=== PATIENT | female | born 1965 | race Caucasian/White ===

== ENCOUNTER → 2017-06-13 | Outpatient (REF) | payer OTHER ==
[~2017-06-13] MED LIST: ASPI325T PO; AZAT50TA2 PO; BUPR150T3 PO; DELZ400C PO; ESCI20TA PO; HUMI40KI2 SC; HYDR25TAB PO; LISI10TA4 PO; OMEP40CA2 PO; TYLE325T5 PO; ZOFR20TA PO; [UNRECOGNIZED DRUG - CODE] PO
[2017-06-13 18:59] LABS: ALBUMIN 4.2 GM/DL (3.2-5.2); ALBUMIN/GLOBULIN RATIO 1.24 (1.00-1.93); ALKALINE PHOSPHATASE 57 U/L (45-117); ALT/SGPT 27 U/L (12-78); ANION GAP 6 MEQ/L (8-16); AST/SGOT 15 U/L (15-37); BILIRUBIN,TOTAL 0.4 MG/DL (0.2-1.0); BLOOD UREA NITROGEN 7 MG/DL (7-18); CALCIUM LEVEL 8.6 MG/DL (8.5-10.1); CARBON DIOXIDE LEVEL 34 MEQ/L (21-32); CHLORIDE LEVEL 96 MEQ/L (98-107); CREATININE FOR GFR 0.55 MG/DL (0.55-1.02); GLOMERULAR FILTRATION RATE > 60.0 (>51); GLUCOSE, FASTING 77 MG/DL (70-105); MAGNESIUM LEVEL 2.3 MG/DL (1.8-2.4); POTASSIUM SERUM 3.8 MEQ/L (3.5-5.1); SODIUM LEVEL 136 MEQ/L (136-145); TOTAL PROTEIN 7.6 GM/DL (6.4-8.2)
[2017-06-13 19:06] LABS: MEAN CORPUSCULAR HEMOGLOBIN 34.6 pg (27.0-33.0); MEAN CORPUSCULAR VOLUME 101.8 fl (80.0-96.0); RED CELL DISTRIBUTION WIDTH 14.4 % (11.5-14.5); WHITE BLOOD COUNT 3.7 K/mm3 (4.0-10.0)
== END ==
LOC: M LABDRAWC 17:29
PROVIDERS: ATTEND Internal Medicine Gastroenterology
DX: K51.90 Ulcerative colitis, unspecified, without complications (principal); K21.9 Gastro-esophageal reflux disease without esophagitis; K44.9 Diaphragmatic hernia without obstruction or gangrene; R19.7 Diarrhea, unspecified

== ENCOUNTER → 2017-06-19 | Outpatient (REF) | payer OTHER | LOC: M LAB REF 18:53 | PROVIDERS: ATTEND Advanced Practice Midwife | DX: Z12.4 Encounter for screening for malignant neoplasm of cervix (principal); R87.622 Low grade squamous intraepithelial lesion on cytologic smear of vagina (LGSIL) ==

== ENCOUNTER → 2018-03-13 | Outpatient (REF) | payer OTHER ==
[2018-03-13 13:41] LABS: BASO % 0.6 % (0.0-1.0); EOS # 0.2 10^3/uL (0.0-0.50); EOS % 4.3 % (0.0-3.0); HEMATOCRIT 38.4 % (36.0-47.0); HEMOGLOBIN 13.1 g/dl (12.0-15.5); LYMPH % 57.4 % (24.0-44.0); MEAN CORPUSCULAR HEMOGLOBIN 31.3 pg (27.0-33.0); MEAN CORPUSCULAR HGB CONC 34.1 g/dl (32.0-36.5); MEAN CORPUSCULAR VOLUME 91.9 fl (80.0-96.0); MONO # 0.5 10^3/uL (0.0-0.8); MONO % 12.9 % (0.0-5.0); NEUTROPHILS % 24.8 % (36.0-66.0); PLATELET COUNT, AUTOMATED 285 10^3/uL (150-450); RED BLOOD COUNT 4.18 10^6/uL (4.00-5.40); RED CELL DISTRIBUTION WIDTH 12.5 % (11.5-14.5); WHITE BLOOD COUNT 3.5 10^3/uL (4.0-10.0)
[2018-03-13 13:44] LABS: NEUTROPHILS # 0.9 10^3/uL (1.8-7.7); POSITIVE DIFF POS FLAG
[2018-03-13 14:21] LABS: CHOLESTEROL LEVEL 247 MG/DL (<200); CHOLESTEROL RISK RATIO 3.983 (<5); FERRITIN 13 NG/ML (8-252); FREE T4 0.87 NG/DL (0.76-1.46); HDL CHOLESTEROL 62 MG/DL (>40); IRON (FE) 124 UG/DL (50-170); LDL CHOLESTEROL 169.8 MG/DL (<100); NON-HDL-C 185 MG/DL; PERCENT SATURATION 34.5 % (13.2-45.0); THYROID STIMULATING HORMONE 0.544 uIU/ML (0.358-3.740); TOTAL IRON BINDING CAPACITY 359 UG/DL (250-450); TRIGLYCERIDES LEVEL 76 MG/DL (<150)
[2018-03-13 14:39] LABS: ESTIMATED AVERAGE GLUCOSE 117 MG/DL (60-110); HEMOGLOBIN A1c 5.7 %
== END ==
LOC: M LAB REF 12:50
DX: E78.4 Other hyperlipidemia (principal); Z79.899 Other long term (current) drug therapy; E55.9 Vitamin D deficiency, unspecified; D64.9 Anemia, unspecified; E03.9 Hypothyroidism, unspecified
CPT/HCPCS: 83550

== ENCOUNTER → 2018-03-13 | Outpatient (REF) | payer OTHER ==
[2018-03-13 14:13] LABS: ALBUMIN 3.8 GM/DL (3.2-5.2); ALKALINE PHOSPHATASE 72 U/L (45-117); ALT/SGPT 29 U/L (12-78); ANION GAP 3 MEQ/L (8-16); AST/SGOT 20 U/L (7-37); BILIRUBIN,TOTAL 0.3 MG/DL (0.2-1.0); BLOOD UREA NITROGEN 7 MG/DL (7-18); C REACTIVE PROTEIN QUANTITATIV < 0.30 MG/DL (0.00-0.30); CALCIUM LEVEL 8.9 MG/DL (8.5-10.1); CARBON DIOXIDE LEVEL 34 MEQ/L (21-32); CHLORIDE LEVEL 97 MEQ/L (98-107); CREATININE FOR GFR 0.61 MG/DL (0.55-1.30); GLOMERULAR FILTRATION RATE > 60.0 (>51); GLUCOSE, FASTING 80 MG/DL (70-100); SODIUM LEVEL 134 MEQ/L (136-145); TOTAL PROTEIN 7.6 GM/DL (6.4-8.2)
[2018-03-13 14:16] LABS: TOTAL 25(OH) VITAMIN D 37.5 NG/ML (30.0-100.0)
== END ==
LOC: M LAB REF 13:24
DX: K52.9 Noninfective gastroenteritis and colitis, unspecified (principal); K44.9 Diaphragmatic hernia without obstruction or gangrene; K21.9 Gastro-esophageal reflux disease without esophagitis
CPT/HCPCS: 80053

== ENCOUNTER → 2018-08-07 | Outpatient (REF) | payer OTHER ==
[2018-08-07 13:50] LABS: BASO % 0.6 % (0.0-1.0); EOS # 0.2 10^3/uL (0.0-0.50); EOS % 4.2 % (0.0-3.0); HEMATOCRIT 39.6 % (36.0-47.0); HEMOGLOBIN 13.5 g/dl (12.0-15.5); LYMPH # 1.9 10^3/uL (1.5-4.5); LYMPH % 51.5 % (24.0-44.0); MEAN CORPUSCULAR HEMOGLOBIN 31.3 pg (27.0-33.0); MEAN CORPUSCULAR HGB CONC 34.1 g/dl (32.0-36.5); MEAN CORPUSCULAR VOLUME 91.7 fl (80.0-96.0); MONO # 0.4 10^3/uL (0.0-0.8); MONO % 11.4 % (0.0-5.0); NEUTROPHILS # 1.2 10^3/uL (1.8-7.7); NEUTROPHILS % 32.3 % (36.0-66.0); PLATELET COUNT, AUTOMATED 310 10^3/uL (150-450); RED BLOOD COUNT 4.32 10^6/uL (4.00-5.40); RED CELL DISTRIBUTION WIDTH 12.2 % (11.5-14.5); WHITE BLOOD COUNT 3.6 10^3/uL (4.0-10.0)
[2018-08-07 14:00] LABS: ESTIMATED AVERAGE GLUCOSE 120 MG/DL (60-110); HEMOGLOBIN A1c 5.8 %
[2018-08-07 14:05] LABS: ALBUMIN 3.8 GM/DL (3.2-5.2); ALBUMIN/GLOBULIN RATIO 1.03 (1.00-1.93); ALKALINE PHOSPHATASE 59 U/L (45-117); ALT/SGPT 29 U/L (12-78); ANION GAP 5 MEQ/L (8-16); AST/SGOT 22 U/L (7-37); BILIRUBIN,TOTAL 0.4 MG/DL (0.2-1.0); BLOOD UREA NITROGEN 7 MG/DL (7-18); CALCIUM LEVEL 8.5 MG/DL (8.5-10.1); CARBON DIOXIDE LEVEL 34 MEQ/L (21-32); CHLORIDE LEVEL 95 MEQ/L (98-107); CHOLESTEROL LEVEL 226 MG/DL (<200); CHOLESTEROL RISK RATIO 4.035 (<5); CREATININE FOR GFR 0.68 MG/DL (0.55-1.30); FERRITIN 18 NG/ML (8-252); GLOMERULAR FILTRATION RATE > 60.0 (>51); GLUCOSE, FASTING 82 MG/DL (70-100); HDL CHOLESTEROL 56 MG/DL (>40); IRON (FE) 117 UG/DL (50-170); LDL CHOLESTEROL 158 MG/DL (<100); NON-HDL-C 170 MG/DL; PERCENT SATURATION 33.5 % (13.2-45.0); POTASSIUM SERUM 4.7 MEQ/L (3.5-5.1); SODIUM LEVEL 134 MEQ/L (136-145); THYROID STIMULATING HORMONE 0.771 uIU/ML (0.358-3.740); TOTAL IRON BINDING CAPACITY 349 UG/DL (250-450); TOTAL PROTEIN 7.5 GM/DL (6.4-8.2); TRIGLYCERIDES LEVEL 62 MG/DL (<150)
== END ==
LOC: M LAB REF 13:10
DX: E04.2 Nontoxic multinodular goiter (principal); Z79.899 Other long term (current) drug therapy; K51.80 Other ulcerative colitis without complications; D64.9 Anemia, unspecified; E78.49 Other hyperlipidemia

== ENCOUNTER → 2019-01-15 | Outpatient (REF) | payer OTHER ==
[~2019-01-15] MED LIST changes: -ZOFR20TA PO; +ZOFR4TAB16 PO
== END ==
LOC: M LAB REF 13:29
PROVIDERS: ATTEND Advanced Practice Midwife
DX: Z12.4 Encounter for screening for malignant neoplasm of cervix (principal); R87.612 Low grade squamous intraepithelial lesion on cytologic smear of cervix (LGSIL)
CPT/HCPCS: 87624; G0123

== ENCOUNTER → 2019-02-17 | Outpatient (REF) | payer OTHER ==
[~2019-02-17] MED LIST changes: +ASPI-1 PO; -ASPI325T PO; +HYDR-2541 PO; -HYDR25TAB PO
== END ==
LOC: M LAB REF 17:31
PROVIDERS: ATTEND Obstetrics & Gynecology
DX: N87.9 Dysplasia of cervix uteri, unspecified (principal)

== ENCOUNTER → 2019-04-08 | Outpatient (CLI) | payer OTHER ==
[2019-04-08 19:17] LABS: HEMATOCRIT 40.8 % (36.0-47.0); HEMOGLOBIN 13.5 g/dl (12.0-15.5); MEAN CORPUSCULAR HGB CONC 33.1 g/dl (32.0-36.5); MEAN CORPUSCULAR VOLUME 93.8 fl (80.0-96.0); PLATELET COUNT, AUTOMATED 319 10^3/uL (150-450); RED BLOOD COUNT 4.35 10^6/uL (4.00-5.40); WHITE BLOOD COUNT 5.5 10^3/uL (4.0-10.0)
[2019-04-08 19:29] LABS: ALT/SGPT 29 U/L (12-78); BILIRUBIN,TOTAL 0.3 MG/DL (0.2-1.0); BLOOD UREA NITROGEN 8 MG/DL (7-18); CALCIUM LEVEL 8.8 MG/DL (8.5-10.1); CARBON DIOXIDE LEVEL 33 MEQ/L (21-32); CHLORIDE LEVEL 96 MEQ/L (98-107); CREATININE FOR GFR 0.65 MG/DL (0.55-1.30); GLOMERULAR FILTRATION RATE > 60.0 (>51); GLUCOSE, FASTING 98 MG/DL (70-100); MAGNESIUM LEVEL 2.2 MG/DL (1.8-2.4); POTASSIUM SERUM 3.8 MEQ/L (3.5-5.1); SODIUM LEVEL 135 MEQ/L (136-145); TOTAL PROTEIN 7.7 GM/DL (6.4-8.2); VITAMIN B12 LEVEL 758 PG/ML (247-911)
== END ==
LOC: M WUC 13:15
PROVIDERS: ATTEND Internal Medicine Gastroenterology
DX: K51.90 Ulcerative colitis, unspecified, without complications (principal)

== ENCOUNTER → 2019-05-29 | Outpatient (CLI) | payer OTHER ==
[2019-05-29 17:57] LABS: HEMATOCRIT 41.4 % (36.0-47.0); HEMOGLOBIN 13.7 g/dl (12.0-15.5); MEAN CORPUSCULAR HEMOGLOBIN 30.8 pg (27.0-33.0); MEAN CORPUSCULAR HGB CONC 33.1 g/dl (32.0-36.5); PLATELET COUNT, AUTOMATED 297 10^3/uL (150-450); RED BLOOD COUNT 4.45 10^6/uL (4.00-5.40); WHITE BLOOD COUNT 4.7 10^3/uL (4.0-10.0)
== END ==
LOC: M WUC 14:59
PROVIDERS: ATTEND Internal Medicine Gastroenterology
DX: R19.7 Diarrhea, unspecified (principal); K52.9 Noninfective gastroenteritis and colitis, unspecified

== ENCOUNTER → 2019-07-07 | Outpatient (REF) ==
[~2019-07-07] MED LIST changes: -OMEP40CA2 PO; +OMEP40CA97 PO
--- NOTE | 2019-07-07 13:57 | REP ---
Click nickel: Pain and disability. Technique: AP, lateral, bilateral oblique and sunrise views of the right knee. Findings: Mild/ early moderate osteoarthritic degenerative changes includes sclerosis along the medial tibial plateau with marginal osteophytosis and cortical irregularity. No acute fracture or dislocation. No effusion. Impression: Mild/early moderate osteoarthritic degenerative changes. Electronically Signed by Vasquez Estrada MD 07/07/2019 01:49 P
--- NOTE | 2019-07-07 14:02 | REP ---
Clinical: Pain and disability. Technique: AP, lateral, coned-down views of the lumbosacral spine. Findings: Alignment and lordosis maintained. No acute fracture / compression injury or subluxation. Moderate multilevel degenerative changes include endplate sclerosis, early marginal spurring, and disc space narrowing and hypertrophic facet changes. Impression: Moderate multilevel degenerative spondylosis. Electronically Signed by Vasquez Estrada MD 07/07/2019 01:53 P
== END ==
LOC: M SMT 13:32
PROVIDERS: ATTEND Internal Medicine
DX: M51.36 Other intervertebral disc degeneration, lumbar region (principal); Z02.71 Encounter for disability determination

== ENCOUNTER → 2019-08-09 | Outpatient (CLI) | payer BC ==
[~2019-08-09] MED LIST changes: +OMEP40CA2 PO; -OMEP40CA97 PO
== END ==
LOC: M WUC 10:31
PROVIDERS: ATTEND Internal Medicine Gastroenterology
DX: Z11.1 Encounter for screening for respiratory tuberculosis (principal)

== ENCOUNTER → 2019-09-02 | Outpatient (CLI) | payer BC ==
[~2019-09-02] MED LIST changes: -OMEP40CA2 PO; +OMEP40CA97 PO
[2019-09-02 11:16] LABS: HEMATOCRIT 41.7 % (36.0-47.0); HEMOGLOBIN 13.2 g/dl (12.0-15.5); MEAN CORPUSCULAR HEMOGLOBIN 30.4 pg (27.0-33.0); MEAN CORPUSCULAR HGB CONC 31.7 g/dl (32.0-36.5); MEAN CORPUSCULAR VOLUME 96.1 fl (80.0-96.0); PLATELET COUNT, AUTOMATED 358 10^3/uL (150-450); RED BLOOD COUNT 4.34 10^6/uL (4.00-5.40); WHITE BLOOD COUNT 5.9 10^3/uL (4.0-10.0)
[2019-09-02 11:51] LABS: ALBUMIN 3.3 GM/DL (3.2-5.2); ALT/SGPT 20 U/L (12-78); BILIRUBIN,TOTAL 0.4 MG/DL (0.2-1.0); BLOOD UREA NITROGEN 8 MG/DL (7-18); C REACTIVE PROTEIN QUANTITATIV < 0.30 MG/DL (0.00-0.30); CALCIUM LEVEL 8.8 MG/DL (8.5-10.1); CARBON DIOXIDE LEVEL 34 MEQ/L (21-32); CHLORIDE LEVEL 97 MEQ/L (98-107); CREATININE FOR GFR 0.72 MG/DL (0.55-1.30); GLOMERULAR FILTRATION RATE > 60.0 (>51); GLUCOSE, FASTING 77 MG/DL (70-100); POTASSIUM SERUM 4.2 MEQ/L (3.5-5.1); SODIUM LEVEL 137 MEQ/L (136-145); TOTAL PROTEIN 6.7 GM/DL (6.4-8.2)
== END ==
LOC: M WUC 08:49
PROVIDERS: ATTEND Internal Medicine Gastroenterology
DX: K51.90 Ulcerative colitis, unspecified, without complications (principal); K52.9 Noninfective gastroenteritis and colitis, unspecified; K62.5 Hemorrhage of anus and rectum

== ENCOUNTER → 2019-09-02 | Outpatient (CLI) | payer BC ==
[2019-09-02 11:45] LABS: HEMOGLOBIN A1c 6.1 %
[2019-09-02 11:48] LABS: CHOLESTEROL RISK RATIO 3.752 (<5); THYROID STIMULATING HORMONE 0.969 uIU/ML (0.358-3.740)
== END ==
LOC: M WUC 08:52
PROVIDERS: ATTEND Nurse Practitioner Adult Health
DX: E78.49 Other hyperlipidemia (principal); F41.9 Anxiety disorder, unspecified; E04.2 Nontoxic multinodular goiter; Z79.899 Other long term (current) drug therapy

== ENCOUNTER → 2019-10-05 | Outpatient (CLI) | payer BC ==
[2019-10-05 17:18] LABS: ALBUMIN 3.5 GM/DL (3.2-5.2); ALT/SGPT 25 U/L (12-78); BILIRUBIN,TOTAL 0.6 MG/DL (0.2-1.0); BLOOD UREA NITROGEN 10 MG/DL (7-18); C REACTIVE PROTEIN QUANTITATIV < 0.30 MG/DL (0.00-0.30); CALCIUM LEVEL 9.2 MG/DL (8.5-10.1); CARBON DIOXIDE LEVEL 31 MEQ/L (21-32); CHLORIDE LEVEL 96 MEQ/L (98-107); CREATININE FOR GFR 0.77 MG/DL (0.55-1.30); GLOMERULAR FILTRATION RATE > 60.0 (>51); GLUCOSE, FASTING 89 MG/DL (70-100); HEMATOCRIT 38.4 % (36.0-47.0); HEMOGLOBIN 12.5 g/dl (12.0-15.5); MEAN CORPUSCULAR HEMOGLOBIN 30.6 pg (27.0-33.0); MEAN CORPUSCULAR HGB CONC 32.6 g/dl (32.0-36.5); MEAN CORPUSCULAR VOLUME 93.9 fl (80.0-96.0); PLATELET COUNT, AUTOMATED 339 10^3/uL (150-450); POTASSIUM SERUM 3.7 MEQ/L (3.5-5.1); RED BLOOD COUNT 4.09 10^6/uL (4.00-5.40); SODIUM LEVEL 136 MEQ/L (136-145); TOTAL PROTEIN 6.8 GM/DL (6.4-8.2); WHITE BLOOD COUNT 5.6 10^3/uL (4.0-10.0)
== END ==
LOC: M WUC 10:54
PROVIDERS: ATTEND Internal Medicine Gastroenterology
DX: K52.9 Noninfective gastroenteritis and colitis, unspecified (principal); K51.90 Ulcerative colitis, unspecified, without complications; D61.818 Other pancytopenia

== ENCOUNTER → 2019-12-13 | Outpatient (CLI) | payer BC ==
[2019-12-13 14:51] LABS: HEMATOCRIT 38.5 % (36.0-47.0); HEMOGLOBIN 12.7 g/dl (12.0-15.5); MEAN CORPUSCULAR HEMOGLOBIN 31.5 pg (27.0-33.0); MEAN CORPUSCULAR VOLUME 95.5 fl (80.0-96.0); PLATELET COUNT, AUTOMATED 364 10^3/uL (150-450); RED BLOOD COUNT 4.03 10^6/uL (4.00-5.40); WHITE BLOOD COUNT 6.9 10^3/uL (4.0-10.0)
[2019-12-13 15:03] LABS: ALBUMIN 3.8 GM/DL (3.2-5.2); ALT/SGPT 36 U/L (12-78); BILIRUBIN,TOTAL 0.2 MG/DL (0.2-1.0); BLOOD UREA NITROGEN 8 MG/DL (7-18); C REACTIVE PROTEIN QUANTITATIV < 0.30 MG/DL (0.00-0.30); CALCIUM LEVEL 9.3 MG/DL (8.5-10.1); CARBON DIOXIDE LEVEL 33 MEQ/L (21-32); CHLORIDE LEVEL 97 MEQ/L (98-107); CREATININE FOR GFR 0.73 MG/DL (0.55-1.30); GLOMERULAR FILTRATION RATE > 60.0 (>51); GLUCOSE, FASTING 95 MG/DL (70-100); SODIUM LEVEL 136 MEQ/L (136-145); TOTAL PROTEIN 7.3 GM/DL (6.4-8.2)
[2019-12-13 15:08] LABS: TOTAL 25(OH) VITAMIN D 35.7 NG/ML (30.0-100.0)
== END ==
LOC: M WUC 11:58
PROVIDERS: ATTEND Internal Medicine Gastroenterology
DX: K51.90 Ulcerative colitis, unspecified, without complications (principal); K52.9 Noninfective gastroenteritis and colitis, unspecified; D50.0 Iron deficiency anemia secondary to blood loss (chronic); E55.9 Vitamin D deficiency, unspecified

== ENCOUNTER → 2020-02-16 | Outpatient (CLI) | payer BC ==
--- NOTE | 2020-02-17 04:57 | REP ---
Clinical: Pelvic pain/mass. Technique: Transabdominal pelvic ultrasound followed by transvaginal examination for better evaluation of the endometrium and adnexa. Findings: Bladder is incompletely distended but grossly normal in appearance. Anteverted heterogeneous uterus measures 6.7 x 1.8 x 3.4 cm. Endometrial complex measures 2 mm thickness. There is suggestion for poorly defined anterior intramural fibroid measuring 8 mm diameter. Left ovary is not visualized. The right ovary measures 4.3 x 3.2 x 3.8 cm (RI 0.62) without torsion and includes a 3.9 x 3.0 x 3.2 cm complex cystic lesion with debris. No pelvic fluid or adnexal mass lesion. Impression: 1. Heterogeneous uterus with possible 8 mm anterior intramural fibroid. 2. A 3.9 cm Complex cyst in the right ovary is identified. Likely physiologic although reevaluation and 4-6 weeks may be warranted to evaluate for resolution. 3. Left ovary not visualized. No pelvic fluid.
== END ==
LOC: M WHC 09:30
PROVIDERS: ATTEND Advanced Practice Midwife
DX: N83.201 Unspecified ovarian cyst, right side (principal)

== ENCOUNTER → 2020-03-28 | Outpatient (CLI) | payer BC ==
[~2020-03-28] MED LIST changes: -DELZ400C PO; +DELZ400C5 PO
--- NOTE | 2020-03-29 02:58 | REP ---
Clinical: Follow up right ovarian cyst. Comparison: 02/16/2020. Technique: Transabdominal pelvic ultrasound followed by transvaginal examination for better evaluation of the endometrium and adnexa with color Doppler evaluation of the ovaries. Findings: Bladder is under distended and limits transabdominal imaging. Heterogeneous anteverted uterus measures 5.8 x 2.6 x 3.8 cm. Endometrial complex measures 2.0 mm thickness. Anterior fibroid again noted measuring approximately 9 mm maximal diameter. Bilateral ovaries are normal in vascularity without torsion. Right ovary measures 2.9 x 3.4 x 3.6 cm (RI 0.65) and includes 3.6 x 3.6 x 3.2 cm simple cyst similar to prior examination. Left ovary measures 2.1 x 1.5 x 1.2 cm (RI 0.50). No pelvic fluid or adnexal mass lesion. Impression: 1. Heterogeneous anteverted uterus with 9 mm anterior fibroid again noted. 2. Right ovarian cyst again identified and appears relatively simple on current examination.
== END ==
LOC: M WHC 10:55
PROVIDERS: ATTEND Advanced Practice Midwife
DX: N83.201 Unspecified ovarian cyst, right side (principal)

== ENCOUNTER → 2020-05-01 | Outpatient (CLI) | payer BC ==
[2020-05-01 12:55] LABS: HEMATOCRIT 33.9 % (36.0-47.0); HEMOGLOBIN 11.4 g/dl (12.0-15.5); MEAN CORPUSCULAR HEMOGLOBIN 32.4 pg (27.0-33.0); MEAN CORPUSCULAR HGB CONC 33.6 g/dl (32.0-36.5); MEAN CORPUSCULAR VOLUME 96.3 fl (80.0-96.0); PLATELET COUNT, AUTOMATED 323 10^3/uL (150-450); RED BLOOD COUNT 3.52 10^6/uL (4.00-5.40); WHITE BLOOD COUNT 3.2 10^3/uL (4.0-10.0)
[2020-05-01 13:02] LABS: ALBUMIN 3.4 GM/DL (3.2-5.2); ALT/SGPT 68 U/L (12-78); BILIRUBIN,TOTAL 0.3 MG/DL (0.2-1.0); BLOOD UREA NITROGEN 9 MG/DL (7-18); CALCIUM LEVEL 8.8 MG/DL (8.5-10.1); CARBON DIOXIDE LEVEL 32 MEQ/L (21-32); CHLORIDE LEVEL 102 MEQ/L (98-107); CHOLESTEROL LEVEL 202 MG/DL (<200); CHOLESTEROL RISK RATIO 3.672 (<5); CREATININE FOR GFR 0.69 MG/DL (0.55-1.30); GLOMERULAR FILTRATION RATE > 60.0 (>51); GLUCOSE, FASTING 92 MG/DL (70-100); HDL CHOLESTEROL 55 MG/DL (>40); LDL CHOLESTEROL 134 MG/DL (<100); MAGNESIUM LEVEL 2.2 MG/DL (1.8-2.4); NON-HDL-C 147 MG/DL; POTASSIUM SERUM 4.4 MEQ/L (3.5-5.1); SODIUM LEVEL 139 MEQ/L (136-145); THYROID STIMULATING HORMONE 0.472 uIU/ML (0.358-3.740); TOTAL PROTEIN 6.6 GM/DL (6.4-8.2); TRIGLYCERIDES LEVEL 65 MG/DL (<150)
[2020-05-01 13:28] LABS: EOSINOPHILS 4 % (0-3); LYMPHOCYTES 55 % (16-44); MONOCYTES 2 % (0-5); NEUTROPHILS 37 % (28-66)
[2020-05-01 13:29] LABS: BASOPHILS 2 % (0-1)
[2020-05-01 13:30] LABS: PLATELET ESTIMATE NORMAL (NORMAL)
[2020-05-01 13:47] LABS: HEMOGLOBIN A1c 6.6 %
== END ==
LOC: M WUC 09:26
PROVIDERS: ATTEND Nurse Practitioner Adult Health
DX: E78.00 Pure hypercholesterolemia, unspecified (principal); F33.1 Major depressive disorder, recurrent, moderate; Z79.899 Other long term (current) drug therapy; K51.911 Ulcerative colitis, unspecified with rectal bleeding; D64.9 Anemia, unspecified; K21.9 Gastro-esophageal reflux disease without esophagitis

== ENCOUNTER → 2020-05-01 | Outpatient (CLI) | payer BC ==
[2020-05-01 12:51] LABS: MAGNESIUM LEVEL 2.4 MG/DL (1.8-2.4)
[2020-05-01 13:07] LABS: TOTAL 25(OH) VITAMIN D 58.4 NG/ML (30.0-100.0)
== END ==
LOC: M WUC 09:31
PROVIDERS: ATTEND Internal Medicine Gastroenterology
DX: E55.9 Vitamin D deficiency, unspecified (principal); D50.0 Iron deficiency anemia secondary to blood loss (chronic); K21.9 Gastro-esophageal reflux disease without esophagitis; K51.90 Ulcerative colitis, unspecified, without complications; E56.9 Vitamin deficiency, unspecified

== ENCOUNTER → 2020-06-14 | Outpatient (REF) | payer OTHER ==
[2020-07-15 11:55] LABS: HEMATOCRIT 35.5 % (36.0-47.0); HEMOGLOBIN 11.8 g/dl (12.0-15.5); MEAN CORPUSCULAR HEMOGLOBIN 32.4 pg (27.0-33.0); MEAN CORPUSCULAR HGB CONC 33.2 g/dl (32.0-36.5); MEAN CORPUSCULAR VOLUME 97.5 fl (80.0-96.0); PLATELET COUNT, AUTOMATED 421 10^3/uL (150-450); RED BLOOD COUNT 3.64 10^6/uL (4.00-5.40); WHITE BLOOD COUNT 3.2 10^3/uL (4.0-10.0)
[2020-07-29 11:18] LABS: ALBUMIN 3.7 GM/DL (3.2-5.2); ALT/SGPT 199 U/L (12-78); BILIRUBIN,TOTAL 0.7 MG/DL (0.2-1.0); BLOOD UREA NITROGEN 14 MG/DL (7-18); CALCIUM LEVEL 8.9 MG/DL (8.5-10.1); CARBON DIOXIDE LEVEL 31 MEQ/L (21-32); CHLORIDE LEVEL 100 MEQ/L (98-107); CREATININE FOR GFR 0.82 MG/DL (0.55-1.30); GLOMERULAR FILTRATION RATE > 60.0 (>51); GLUCOSE, FASTING 99 MG/DL (70-100); IRON (FE) 148 UG/DL (50-170); POTASSIUM SERUM 4.1 MEQ/L (3.5-5.1); SODIUM LEVEL 136 MEQ/L (136-145); TOTAL IRON BINDING CAPACITY 302 UG/DL (250-450); TOTAL PROTEIN 7.2 GM/DL (6.4-8.2)
[2020-08-28 15:36] LABS: 6-TGN SEE SEPARATE REPORT (230-400); 6MMPN SEE SEPARATE REPORT (<5700)
== END ==
LOC: M LABWUC 09:06
PROVIDERS: ATTEND Internal Medicine Gastroenterology
DX: K44.9 Diaphragmatic hernia without obstruction or gangrene (principal); R53.82 Chronic fatigue, unspecified; K21.9 Gastro-esophageal reflux disease without esophagitis; D50.0 Iron deficiency anemia secondary to blood loss (chronic); K51.90 Ulcerative colitis, unspecified, without complications

== ENCOUNTER → 2020-07-17 | Outpatient (CLI) | payer OTHER ==
[2020-07-17 16:38] LABS: MAGNESIUM LEVEL 2.1 MG/DL (1.8-2.4)
== END ==
LOC: M WUC 12:32
PROVIDERS: ATTEND Internal Medicine Gastroenterology
DX: D50.0 Iron deficiency anemia secondary to blood loss (chronic) (principal); K52.9 Noninfective gastroenteritis and colitis, unspecified; K51.90 Ulcerative colitis, unspecified, without complications; E56.9 Vitamin deficiency, unspecified

== ENCOUNTER → 2020-07-17 | Outpatient (CLI) | payer OTHER ==
[2020-07-17 16:26] LABS: BASO % 0.6 % (0.0-1.0); EOS # 0.1 10^3/uL (0.0-0.5); EOS % 2.5 % (0.0-3.0); LYMPH # 1.6 10^3/uL (1.5-5.0); LYMPH % 50.2 % (24.0-44.0); MEAN CORPUSCULAR HEMOGLOBIN 32.6 pg (27.0-33.0); MEAN CORPUSCULAR HGB CONC 34.3 g/dl (32.0-36.5); MEAN CORPUSCULAR VOLUME 95.1 fl (80.0-96.0); MONO # 0.3 10^3/uL (0.0-0.8); MONO % 10.8 % (0.0-5.0); NEUTROPHILS # 1.1 10^3/uL (1.5-8.5); NEUTROPHILS % 35.9 % (36.0-66.0); PLATELET COUNT, AUTOMATED 327 10^3/uL (150-450); RED BLOOD COUNT 3.68 10^6/uL (4.00-5.40); WHITE BLOOD COUNT 3.2 10^3/uL (4.0-10.0)
[2020-07-17 17:12] LABS: ALBUMIN 3.6 GM/DL (3.2-5.2); ALT/SGPT 41 U/L (12-78); BILIRUBIN,DIRECT 0.1 MG/DL (0.0-0.2); BILIRUBIN,TOTAL 0.4 MG/DL (0.2-1.0); BLOOD UREA NITROGEN 8 MG/DL (7-18); CALCIUM LEVEL 8.8 MG/DL (8.5-10.1); CARBON DIOXIDE LEVEL 31 MEQ/L (21-32); CHLORIDE LEVEL 98 MEQ/L (98-107); CREATININE FOR GFR 0.73 MG/DL (0.55-1.30); FREE T3 3.1 PG/ML (2.2-4.0); FREE T4 0.99 NG/DL (0.76-1.46); GLOMERULAR FILTRATION RATE > 60.0 (>51); GLUCOSE, FASTING 87 MG/DL (70-100); POTASSIUM SERUM 3.9 MEQ/L (3.5-5.1); SODIUM LEVEL 135 MEQ/L (136-145); THYROID PEROXIDASE ANTIBODY 36.6 U/ML (<60.0); THYROID STIMULATING HORMONE 0.333 uIU/ML (0.358-3.740); THYROXINE (T4) 7.3 UG/DL (4.5-12.0); TOTAL PROTEIN 7.3 GM/DL (6.4-8.2)
[2020-07-20 19:11] LABS: D001-IgE D pteronyssinus 4.05 kU/L (Class IV); E005-IgE Dog Dander 0.23 kU/L (Class 0/I); F002-IgE Milk < 0.10 kU/L (Class 0); F004-IgE Wheat < 0.10 kU/L (Class 0); F026-IgE Pork < 0.10 kU/L (Class 0); F027-IgE Beef < 0.10 kU/L (Class 0); F245-IgE Egg, Whole < 0.10 kU/L (Class 0); FX02-IgE Food Mix (Sea Foods) Negative (.); G002-IgE Bermuda Grass < 0.10 kU/L (Class 0); G008-IgE Kentucky Bluegrass < 0.10 kU/L (Class 0); M001-IgE Penicillium chrysogen < 0.10 kU/L (Class 0); M002 IgE Cladosporium herbaru < 0.10 kU/L (Class 0); M003 IgE Aspergillus fumigatu < 0.10 kU/L (Class 0); M006-IgE Alternaria alternata < 0.10 kU/L (Class 0); T001-IgE Maple/Box Elder < 0.10 kU/L (Class 0); T003-IgE Common Silver Birch < 0.10 kU/L (Class 0); T006-IgE Cedar, Mountain < 0.10 kU/L (Class 0); T007-IgE Oak, White < 0.10 kU/L (Class 0); T008-IgE Elm, American < 0.10 kU/L (Class 0); T015-IgE Ash, White < 0.10 kU/L (Class 0); T041-IgE Hickory, White < 0.10 kU/L (Class 0); T070-IgE White Mulberry < 0.10 kU/L (Class 0); W001-IgE Ragweed, Short 2.32 kU/L (Class III); W009-IgE Plantain, English < 0.10 kU/L (Class 0); W014-IgE Pigweed, Rough < 0.10 kU/L (Class 0); W018-IgE Sheep Sorrel < 0.10 kU/L (Class 0)
== END ==
LOC: M WUC 12:35
PROVIDERS: ATTEND Nurse Practitioner Adult Health
DX: E04.2 Nontoxic multinodular goiter (principal); D64.9 Anemia, unspecified; K51.911 Ulcerative colitis, unspecified with rectal bleeding; T78.40XD Allergy, unspecified, subsequent encounter; Z79.899 Other long term (current) drug therapy

== ENCOUNTER → 2020-07-18 | Outpatient (CLI) | payer OTHER ==
--- NOTE | 2020-07-31 11:32 | REP ---
THYROID ULTRASOUND CLINICAL: Multinodular goiter. TECHNIQUE: Real-time gabriel scale and color evaluation using linear high frequency transducer. FINDINGS: Right thyroid lobe measures 6.1 x 2.8 x 2.5 cm and appears diffusely heterogeneous along with a 2.1 x 1.4 x 1.4 cm solid mid-pole nodule, 1.9 x 1.2 x 2.0 cm solid mid-lower pole nodule, and 1.7 x 1.0 x 2.2 cm complex cyst with 9 mm mural nodule. The left thyroid lobe measures approximately 6.3 x 2.1 x 2.2 cm and includes 1.5 x 0.6 x 1.2 cm upper pole solid nodule, 1.4 x 0.7 x 1.0 cm solid mid-pole blanco, and 1.0 x 0.5 x 0.8 cm complex lower pole cystic nodule. The isthmus measures 3.6 mm in width. IMPRESSION: Heterogeneous multinodular goiter. No prior examinations available for comparison. MTDD
--- NOTE | 2020-07-31 11:35 | REP ---
LIVER ULTRASOUND: CLINICAL: Elevated liver function tests. FINDINGS: The liver and pancreas are normal in contour, size and echogenicity without focal hepatic or pancreatic lesion identified. The gallbladder is normal and without gallstones, wall thickening or pericholecystic fluid. No biliary ductal dilatation is appreciated and the common bile duct measures 1.3 mm diameter. The right kidney is normal reniform shape without hydronephrosis and measures 9.4 x 4.3 x 4.2 cm. No ascites in the visualized right upper quadrant. IMPRESSION: Normal liver and right upper quadrant ultrasound. MTDD
== END ==
LOC: M RAD 09:15
PROVIDERS: ATTEND Nurse Practitioner Adult Health
DX: R94.5 Abnormal results of liver function studies (principal); D64.9 Anemia, unspecified; K51.911 Ulcerative colitis, unspecified with rectal bleeding; E04.2 Nontoxic multinodular goiter; Z79.899 Other long term (current) drug therapy

== ENCOUNTER → 2021-01-29 | Outpatient (CLI) | payer OTHER ==
[~2021-01-29] MED LIST changes: +BUPR150T12 PO; -BUPR150T3 PO; -ESCI20TA PO; +ESCI20TA16 PO; +LISI10TA22 PO; -LISI10TA4 PO
[2021-01-29 13:04] LABS: HEMATOCRIT 34.2 % (36.0-47.0); MEAN CORPUSCULAR HGB CONC 32.2 g/dl (32.0-36.5); MEAN CORPUSCULAR VOLUME 93.2 fl (80.0-96.0); PLATELET COUNT, AUTOMATED 328 10^3/uL (150-450); RED BLOOD COUNT 3.67 10^6/uL (4.00-5.40); WHITE BLOOD COUNT 6.4 10^3/uL (4.0-10.0)
[2021-01-29 13:36] LABS: ALBUMIN 3.3 GM/DL (3.2-5.2); ALT/SGPT 18 U/L (12-78); BILIRUBIN,TOTAL 0.2 MG/DL (0.2-1.0); BLOOD UREA NITROGEN 10 MG/DL (7-18); CALCIUM LEVEL 8.5 MG/DL (8.5-10.1); CARBON DIOXIDE LEVEL 35 MEQ/L (21-32); CHLORIDE LEVEL 100 MEQ/L (98-107); GLOMERULAR FILTRATION RATE > 60.0 (>51); GLUCOSE, FASTING 136 MG/DL (70-100); MAGNESIUM LEVEL 2.3 MG/DL (1.8-2.4); POTASSIUM SERUM 3.5 MEQ/L (3.5-5.1); SODIUM LEVEL 138 MEQ/L (136-145); TOTAL PROTEIN 6.5 GM/DL (6.4-8.2)
== END ==
LOC: M WUC 11:25
PROVIDERS: ATTEND Internal Medicine Gastroenterology
DX: K51.90 Ulcerative colitis, unspecified, without complications (principal); K62.5 Hemorrhage of anus and rectum; K44.9 Diaphragmatic hernia without obstruction or gangrene; R11.2 Nausea with vomiting, unspecified; D50.0 Iron deficiency anemia secondary to blood loss (chronic); R63.4 Abnormal weight loss

== ENCOUNTER → 2021-05-15 | Outpatient (REF) | payer MEDICARE ==
[~2021-05-15] MED LIST changes: +OMEP40CA4 PO; -OMEP40CA97 PO
== END ==
LOC: M SFHCWAGY 19:31
PROVIDERS: ATTEND Advanced Practice Midwife
DX: Z12.4 Encounter for screening for malignant neoplasm of cervix (principal); R87.610 Atypical squamous cells of undetermined significance on cytologic smear of cervix (ASC-US); R87.618 Other abnormal cytological findings on specimens from cervix uteri
CPT/HCPCS: 87624; G0123

== ENCOUNTER → 2021-05-15 | Outpatient (CLI) | payer MEDICARE | LOC: M WHC 14:21 | PROVIDERS: ATTEND Advanced Practice Midwife | DX: Z12.31 Encounter for screening mammogram for malignant neoplasm of breast (principal); Z78.0 Asymptomatic menopausal state; Z80.3 Family history of malignant neoplasm of breast; R92.1 Mammographic calcification found on diagnostic imaging of breast ==

== ENCOUNTER → 2021-08-24 | Outpatient (CLI) | payer MEDICARE | LOC: M WUC 08:49 | PROVIDERS: ATTEND Internal Medicine Gastroenterology | DX: K51.90 Ulcerative colitis, unspecified, without complications (principal) ==

== ENCOUNTER → 2021-08-24 | Outpatient (CLI) | payer MEDICARE ==
[2021-08-24 12:26] LABS: BASO % 0.4 % (0.0-1.0); EOS # 0.1 10^3/uL (0.0-0.5); EOS % 2.4 % (0.0-3.0); HEMATOCRIT 37.9 % (36.0-47.0); HEMOGLOBIN 12.4 g/dl (12.0-15.5); LYMPH # 2.2 10^3/uL (1.5-5.0); LYMPH % 47.9 % (24.0-44.0); MEAN CORPUSCULAR HEMOGLOBIN 31.6 pg (27.0-33.0); MEAN CORPUSCULAR HGB CONC 32.7 g/dl (32.0-36.5); MEAN CORPUSCULAR VOLUME 96.4 fl (80.0-96.0); MONO # 0.6 10^3/uL (0.0-0.8); MONO % 12.6 % (2.0-8.0); NEUTROPHILS # 1.6 10^3/uL (1.5-8.5); NEUTROPHILS % 36.5 % (36.0-66.0); PLATELET COUNT, AUTOMATED 356 10^3/uL (150-450); RED BLOOD COUNT 3.93 10^6/uL (4.00-5.40); WHITE BLOOD COUNT 4.5 10^3/uL (4.0-10.0)
[2021-08-24 12:51] LABS: HEMOGLOBIN A1c 5.8 %
[2021-08-24 13:04] LABS: ALBUMIN 3.4 GM/DL (3.2-5.2); ALT/SGPT 34 U/L (12-78); BILIRUBIN,TOTAL 0.3 MG/DL (0.2-1.0); BLOOD UREA NITROGEN 10 MG/DL (7-18); CALCIUM LEVEL 9.1 MG/DL (8.5-10.1); CARBON DIOXIDE LEVEL 35 MEQ/L (21-32); CHLORIDE LEVEL 99 MEQ/L (98-107); CHOLESTEROL LEVEL 270 MG/DL (<200); CREATININE FOR GFR 0.69 MG/DL (0.55-1.30); GLOMERULAR FILTRATION RATE > 60.0 (>51); GLUCOSE, FASTING 89 MG/DL (70-100); HDL CHOLESTEROL 72 MG/DL (>40); LDL CHOLESTEROL 178 MG/DL (<100); MAGNESIUM LEVEL 2.1 MG/DL (1.8-2.4); NON-HDL-C 198 MG/DL; POTASSIUM SERUM 3.9 MEQ/L (3.5-5.1); SODIUM LEVEL 137 MEQ/L (136-145); TOTAL PROTEIN 7.3 GM/DL (6.4-8.2); TRIGLYCERIDES LEVEL 102 MG/DL (<150)
== END ==
LOC: M WUC 08:46
PROVIDERS: ATTEND Nurse Practitioner Family
DX: Z13.220 Encounter for screening for lipoid disorders (principal); E83.42 Hypomagnesemia; I10 Essential (primary) hypertension; E11.29 Type 2 diabetes mellitus with other diabetic kidney complication

== ENCOUNTER → 2021-10-02 | Outpatient (REF) | payer MEDICARE | LOC: M SFHCWAGY 10:07 | PROVIDERS: ATTEND Obstetrics & Gynecology | DX: R87.612 Low grade squamous intraepithelial lesion on cytologic smear of cervix (LGSIL) (principal) ==

== ENCOUNTER → 2022-01-31 | Outpatient (CLI) | payer MEDICARE ==
[2022-01-31 12:48] LABS: HEMATOCRIT 35.7 % (36.0-47.0); HEMOGLOBIN 11.7 g/dl (12.0-15.5); MEAN CORPUSCULAR HEMOGLOBIN 31.1 pg (27.0-33.0); MEAN CORPUSCULAR HGB CONC 32.8 g/dl (32.0-36.5); MEAN CORPUSCULAR VOLUME 94.9 fl (80.0-96.0); PLATELET COUNT, AUTOMATED 340 10^3/uL (150-450); RED BLOOD COUNT 3.76 10^6/uL (4.00-5.40); WHITE BLOOD COUNT 3.2 10^3/uL (4.0-10.0)
[2022-01-31 13:20] LABS: EOSINOPHILS 2 % (0-3); LYMPHOCYTES 44 % (16-44); MONOCYTES 10 % (0-5); NEUTROPHILS 44 % (28-66); PLATELET ESTIMATE NORMAL (NORMAL)
[2022-01-31 14:04] LABS: ALBUMIN 3.7 GM/DL (3.2-5.2); ALT/SGPT 35 U/L (12-78); BILIRUBIN,TOTAL 0.6 MG/DL (0.2-1.0); BLOOD UREA NITROGEN 8 MG/DL (7-18); CALCIUM LEVEL 8.9 MG/DL (8.5-10.1); CARBON DIOXIDE LEVEL 32 MEQ/L (21-32); CHLORIDE LEVEL 100 MEQ/L (98-107); CHOLESTEROL LEVEL 279 MG/DL (<200); CREATININE FOR GFR 0.68 MG/DL (0.55-1.30); FOLATE 17.1 NG/ML; GLOMERULAR FILTRATION RATE > 60.0 (>51); GLUCOSE, FASTING 90 MG/DL (70-100); HDL CHOLESTEROL 58 MG/DL (>40); LDL CHOLESTEROL 203 MG/DL (<100); MAGNESIUM LEVEL 2.3 MG/DL (1.8-2.4); NON-HDL-C 221 MG/DL; POTASSIUM SERUM 4.3 MEQ/L (3.5-5.1); SODIUM LEVEL 137 MEQ/L (136-145); THYROID STIMULATING HORMONE 0.612 uIU/ML (0.358-3.740); TOTAL PROTEIN 7.1 GM/DL (6.4-8.2); TRIGLYCERIDES LEVEL 90 MG/DL (<150); VITAMIN B12 LEVEL 306 PG/ML
[2022-01-31 17:22] LABS: HEMOGLOBIN A1c 6.1 %
== END ==
LOC: M WUC 08:40
PROVIDERS: ATTEND Nurse Practitioner Family
DX: Z00.01 Encounter for general adult medical examination with abnormal findings (principal); E11.9 Type 2 diabetes mellitus without complications; Z79.899 Other long term (current) drug therapy; E78.00 Pure hypercholesterolemia, unspecified; E83.42 Hypomagnesemia; Z13.29 Encounter for screening for other suspected endocrine disorder; D64.9 Anemia, unspecified

== ENCOUNTER → 2022-04-16 | Outpatient (CLI) | payer MEDICARE ==
[~2022-04-16] MED LIST changes: -AZAT50TA2 PO; +AZAT50TA37 PO
== END ==
LOC: M WUC 11:46
PROVIDERS: ATTEND Nurse Practitioner Family
DX: M25.59 Pain in other specified joint (principal)

== ENCOUNTER → 2022-05-13 | Outpatient (CLI) | payer MEDICARE ==
[~2022-05-13] MED LIST changes: +ISOVUE-370 76% 100ML VIAL As Ordered ONE
== END ==
LOC: M RAD 13:40
PROVIDERS: ATTEND Surgery Vascular Surgery
DX: I65.23 Occlusion and stenosis of bilateral carotid arteries (principal)
CPT/HCPCS: 70496; 70498; Q9967

== ENCOUNTER → 2022-06-06 | Outpatient (REF) | payer MEDICARE ==
[~2022-06-06] MED LIST changes: -ISOVUE-370 76% 100ML VIAL As Ordered ONE
== END ==
LOC: M LAB REF 11:52
PROVIDERS: ATTEND Nurse Practitioner Family
DX: K51.90 Ulcerative colitis, unspecified, without complications (principal); R11.2 Nausea with vomiting, unspecified

== ENCOUNTER → 2022-07-22 | Outpatient (CLI) | payer MEDICARE ==
[2022-07-22 10:23] LABS: BASO % 0.6 % (0.0-1.0); EOS # 0.1 10^3/uL (0.0-0.5); EOS % 4.2 % (0.0-3.0); HEMATOCRIT 39.3 % (36.0-47.0); HEMOGLOBIN 12.4 g/dl (12.0-15.5); LYMPH # 1.5 10^3/uL (1.5-5.0); LYMPH % 46.4 % (24.0-44.0); MEAN CORPUSCULAR HEMOGLOBIN 30.2 pg (27.0-33.0); MEAN CORPUSCULAR HGB CONC 31.6 g/dl (32.0-36.5); MEAN CORPUSCULAR VOLUME 95.9 fl (80.0-96.0); MONO # 0.7 10^3/uL (0.0-0.8); MONO % 21.4 % (2.0-8.0); NEUTROPHILS % 27.4 % (36.0-66.0); PLATELET COUNT, AUTOMATED 343 10^3/uL (150-450); WHITE BLOOD COUNT 3.3 10^3/uL (4.0-10.0)
[2022-07-22 10:42] LABS: HEMOGLOBIN A1c 6.2 %
[2022-07-22 10:51] LABS: NEUTROPHILS # 0.9 10^3/uL (1.5-8.5)
[2022-07-22 11:08] LABS: ALBUMIN 3.8 GM/DL (3.2-5.2); ALT/SGPT 26 U/L (12-78); BILIRUBIN,TOTAL 0.4 MG/DL (0.2-1.0); BLOOD UREA NITROGEN 8 MG/DL (7-18); CALCIUM LEVEL 9.2 MG/DL (8.5-10.1); CARBON DIOXIDE LEVEL 32 MEQ/L (21-32); CHLORIDE LEVEL 98 MEQ/L (98-107); CHOLESTEROL LEVEL 320 MG/DL (<200); CHOLESTEROL RISK RATIO 5.079 (<5); CREATININE FOR GFR 0.68 MG/DL (0.55-1.30); GLOMERULAR FILTRATION RATE > 60.0 (>51); GLUCOSE, FASTING 109 MG/DL (70-100); HDL CHOLESTEROL 63 MG/DL (>40); LDL CHOLESTEROL 232 MG/DL (<100); MAGNESIUM LEVEL 2.3 MG/DL (1.8-2.4); NON-HDL-C 257 MG/DL; POTASSIUM SERUM 4.2 MEQ/L (3.5-5.1); SODIUM LEVEL 134 MEQ/L (136-145); THYROID STIMULATING HORMONE 0.522 uIU/ML (0.358-3.740); TOTAL PROTEIN 7.2 GM/DL (6.4-8.2); TRIGLYCERIDES LEVEL 123 MG/DL (<150)
[2022-07-22 11:30] LABS: VITAMIN B12 LEVEL 430 PG/ML (247-911)
[2022-07-23 08:09] LABS: FOLATE 17.8 ng/mL (>3.0)
== END ==
LOC: M WUC 08:55
PROVIDERS: ATTEND Nurse Practitioner Family
DX: Z00.01 Encounter for general adult medical examination with abnormal findings (principal); Z79.899 Other long term (current) drug therapy; E78.00 Pure hypercholesterolemia, unspecified; E83.42 Hypomagnesemia; Z13.29 Encounter for screening for other suspected endocrine disorder; D51.9 Vitamin B12 deficiency anemia, unspecified; E11.9 Type 2 diabetes mellitus without complications

== ENCOUNTER → 2022-08-20 | Outpatient (CLI) | payer MEDICARE | LOC: M RAD 10:34 | PROVIDERS: ATTEND Nurse Practitioner Family | DX: Z12.2 Encounter for screening for malignant neoplasm of respiratory organs (principal); Z87.891 Personal history of nicotine dependence ==

== ENCOUNTER → 2022-11-20 | Outpatient (CLI) | payer MEDICARE | LOC: M WUC 08:35 | PROVIDERS: ATTEND Internal Medicine Gastroenterology | DX: K51.90 Ulcerative colitis, unspecified, without complications (principal); K21.9 Gastro-esophageal reflux disease without esophagitis; K44.9 Diaphragmatic hernia without obstruction or gangrene ==

== ENCOUNTER → 2022-11-20 | Outpatient (CLI) | payer MEDICARE ==
[2022-11-20 10:57] LABS: BASO % 0.6 % (0.0-1.0); EOS # 0.1 10^3/uL (0.0-0.5); EOS % 3.1 % (0.0-3.0); HEMATOCRIT 36.6 % (36.0-47.0); HEMOGLOBIN 11.8 g/dl (12.0-15.5); LYMPH # 1.5 10^3/uL (1.5-5.0); LYMPH % 43.6 % (24.0-44.0); MEAN CORPUSCULAR HEMOGLOBIN 31.5 pg (27.0-33.0); MEAN CORPUSCULAR HGB CONC 32.2 g/dl (32.0-36.5); MEAN CORPUSCULAR VOLUME 97.6 fl (80.0-96.0); MONO # 0.5 10^3/uL (0.0-0.8); MONO % 14.4 % (2.0-8.0); NEUTROPHILS # 1.3 10^3/uL (1.5-8.5); PLATELET COUNT, AUTOMATED 323 10^3/uL (150-450); RED BLOOD COUNT 3.75 10^6/uL (4.00-5.40); WHITE BLOOD COUNT 3.5 10^3/uL (4.0-10.0)
[2022-11-20 11:13] LABS: HEMOGLOBIN A1c 5.6 % (4.0-6.0)
[2022-11-20 11:31] LABS: MAGNESIUM LEVEL 2.1 MG/DL (1.8-2.4)
[2022-11-20 11:33] LABS: ALBUMIN 3.7 G/DL (3.2-5.2); ALKALINE PHOSPHATASE 65 U/L (46-116); ALT/SGPT 21 U/L (7.0-40); AST/SGOT 19 U/L (<34); BILIRUBIN,TOTAL 0.4 MG/DL (0.3-1.2); BLOOD UREA NITROGEN 8 MG/DL (9-23); CALCIUM LEVEL 8.8 MG/DL (8.5-10.1); CARBON DIOXIDE LEVEL 33 MMOL/L (20-31); CHLORIDE LEVEL 98 MMOL/L (98-107); CHOLESTEROL LEVEL 184 MG/DL (<200); CREATININE FOR GFR 0.67 MG/DL (0.55-1.30); FOLATE 16.33 NG/ML (>5.4); GLOMERULAR FILTRATION RATE > 60.0 (>51); GLUCOSE, FASTING 89 MG/DL (60-100); HDL CHOLESTEROL 57.4 MG/DL (>40); LDL CHOLESTEROL 103.2 MG/DL (<100); NON-HDL-C 127 MG/DL; POTASSIUM SERUM 4.2 MMOL/L (3.5-5.1); SODIUM LEVEL 136 MMOL/L (136-145); THYROID STIMULATING HORMONE 0.545 uIU/ML (0.55-4.78); TOTAL PROTEIN 6.9 G/DL (5.7-8.2); TRIGLYCERIDES LEVEL 117 MG/DL (<150); VITAMIN B12 LEVEL 412 PG/ML (211-911)
== END ==
LOC: M WUC 08:38
PROVIDERS: ATTEND Nurse Practitioner Family
DX: Z00.01 Encounter for general adult medical examination with abnormal findings (principal); E11.9 Type 2 diabetes mellitus without complications; I10 Essential (primary) hypertension; E78.00 Pure hypercholesterolemia, unspecified; E83.42 Hypomagnesemia; Z13.29 Encounter for screening for other suspected endocrine disorder; D51.9 Vitamin B12 deficiency anemia, unspecified

== ENCOUNTER → 2022-12-27 | Outpatient (CLI) | payer MEDICARE ==
[2022-12-27 19:13] LABS: FREE T3 3.3 PG/ML (2.3-4.2); FREE T4 0.96 NG/DL (0.89-1.76); THYROID STIMULATING HORMONE 0.594 uIU/ML (0.55-4.78); THYROXINE (T4) 7.3 UG/DL (4.5-10.9)
== END ==
LOC: M WUC 15:07
DX: E05.90 Thyrotoxicosis, unspecified without thyrotoxic crisis or storm (principal)

== ENCOUNTER → 2022-12-31 | Outpatient (CLI) | payer MEDICARE | LOC: M WHC 13:14 | PROVIDERS: ATTEND Obstetrics & Gynecology | DX: Z12.31 Encounter for screening mammogram for malignant neoplasm of breast (principal) ==

== ENCOUNTER → 2023-01-31 | Outpatient (CLI) | payer MEDICARE ==
[~2023-01-31] MED LIST changes: +BAYE81TA10 PO; +CALC600C3 PO; +COQ-100C5 PO; +FAMO1TAB11 PO; +FAMO20TA PO; +FLAX1CAP5 PO; +FLUO40CA PO; +MAGN100C2 PO; +MESA1000 PR; +METH2.5T48 PO; +MILK175C6 PO; +MONT10TA97 PO; +OMEP-173 PO; +PAPATAB3 PO; +PROBCAP2 PO; +SIMV20TA22 PO; +TURM500C PO; +VALA500T5 PO; +VITATAB73 PO; +VITMTA PO; +[UNRECOGNIZED DRUG - CODE] PO
== END ==
LOC: M LABSMTC 10:47
PROVIDERS: ATTEND Anesthesiology
DX: Z11.52 Encounter for screening for COVID-19 (principal)

== ENCOUNTER → 2023-01-31 | Outpatient (CLI) | payer MEDICARE ==
[2023-01-31 17:03] LABS: BASO % 0.5 % (0.0-1.0); EOS # 0.2 10^3/uL (0.0-0.5); EOS % 5.2 % (0.0-3.0); HEMATOCRIT 38.5 % (36.0-47.0); HEMOGLOBIN 12.1 g/dl (12.0-15.5); LYMPH # 1.6 10^3/uL (1.5-5.0); LYMPH % 42.3 % (24.0-44.0); MEAN CORPUSCULAR HEMOGLOBIN 31.2 pg (27.0-33.0); MEAN CORPUSCULAR HGB CONC 31.4 g/dl (32.0-36.5); MEAN CORPUSCULAR VOLUME 99.2 fl (80.0-96.0); MONO # 0.6 10^3/uL (0.0-0.8); MONO % 15.5 % (2.0-8.0); NEUTROPHILS # 1.4 10^3/uL (1.5-8.5); NEUTROPHILS % 36.2 % (36.0-66.0); PLATELET COUNT, AUTOMATED 318 10^3/uL (150-450); RED BLOOD COUNT 3.88 10^6/uL (4.00-5.40); WHITE BLOOD COUNT 3.9 10^3/uL (4.0-10.0)
[2023-01-31 17:15] LABS: ALBUMIN 3.9 G/DL (3.2-5.2); ALKALINE PHOSPHATASE 58 U/L (46-116); ALT/SGPT 18 U/L (7.0-40); AST/SGOT 18 U/L (<34); BILIRUBIN,TOTAL 0.3 MG/DL (0.3-1.2); BLOOD UREA NITROGEN 8 MG/DL (9-23); CALCIUM LEVEL 9.2 MG/DL (8.5-10.1); CARBON DIOXIDE LEVEL 33 MMOL/L (20-31); CHLORIDE LEVEL 100 MMOL/L (98-107); CREATININE FOR GFR 0.62 MG/DL (0.55-1.30); GLOMERULAR FILTRATION RATE > 60.0 (>51); GLUCOSE, FASTING 91 MG/DL (60-100); POTASSIUM SERUM 4.2 MMOL/L (3.5-5.1); SODIUM LEVEL 136 MMOL/L (136-145); TOTAL PROTEIN 6.8 G/DL (5.7-8.2)
[2023-01-31 17:32] LABS: HEMOGLOBIN A1c 5.4 % (4.0-6.0)
== END ==
LOC: M WUC 10:29
DX: Z01.818 Encounter for other preprocedural examination (principal)

== ENCOUNTER 2023-02-05 08:56 | Day surgery (SDC) | payer MEDICARE ==
[~2023-02-05] VITALS: Ht 162.6 cm; Wt 59.0 kg
[~2023-02-05 08:56] MED LIST changes: +ceFAZolin SOD 2 GM in IV 1 EA IV ONE
[2023-02-05 09:33] LABS: HEMATOCRIT 37.5 % (36.0-47.0); HEMOGLOBIN 12.2 g/dl (12.0-15.5); MEAN CORPUSCULAR HGB CONC 32.5 g/dl (32.0-36.5); MEAN CORPUSCULAR VOLUME 95.4 fl (80.0-96.0); PLATELET COUNT, AUTOMATED 309 10^3/uL (150-450); RED BLOOD COUNT 3.93 10^6/uL (4.00-5.40); WHITE BLOOD COUNT 4.2 10^3/uL (4.0-10.0)
[2023-02-05] MEDS ORDERED: LR 1,000 ML IV SCH ×2 (09:45→13:15)
[2023-02-05] MEDS ORDERED: BUPIVACAINE HCL 0.25% 30ML VIAL As Ordered ONE (11:02)
[2023-02-05] MEDS ORDERED: SCOPOLAMINE 1MG TRANSDERMAL PATCH TOP ONE (11:10)
[2023-02-05] MEDS ORDERED: METOCLOPRAMIDE INJ 10MG/2ML VIAL As Ordered ONE (11:22)
[2023-02-05] MEDS ORDERED: HYDROmorphone HCL 2MG/ML 1ML VIAL As Ordered ONE (11:22)
[2023-02-05] MEDS ORDERED: SUGAMMADEX SODIUM 500 MG/5 ML VIAL (BRIDION) As Ordered ONE (11:22)
[2023-02-05] MEDS ORDERED: ROCURONIUM BROMIDE 50MG/5ML VIAL As Ordered ONE (11:22)
[2023-02-05] MEDS ORDERED: ONDANSETRON 4MG 2ML VIAL As Ordered ONE (11:22)
[2023-02-05] MEDS ORDERED: MIDAZOLAM INJ 2MG/2ML VIAL As Ordered ONE (11:22)
[2023-02-05] MEDS ORDERED: fentaNYL 250 MCG/5 ML INJECTION As Ordered ONE (11:22)
[2023-02-05] MEDS ORDERED: propofoL 200 MG/20 ML VIAL As Ordered ONE (11:22)
[2023-02-05] MEDS ORDERED: ACETAMINOPHEN 1000MG 100ML IV BAG As Ordered ONE (11:22)
[2023-02-05] MEDS ORDERED: LIDOCAINE 2% 100MG/5ML SDV (FOR ANES.) As Ordered ONE (11:22)
[2023-02-05] MEDS ORDERED: ePHEDrine SULFATE 25 MG/5 ML(5MG/ML) SYRINGE As Ordered ONE (11:48)
[2023-02-05] MEDS ORDERED: LABETALOL 100MG/20ML VIAL As Ordered ONE (12:32)
[2023-02-05] MEDS ORDERED: KETOROLAC 30 MG/ML 1ML VIAL IV SCH (13:00)
[2023-02-05] MEDS ORDERED: oxyCODONE 5MG TAB PO PRN (13:15)
[2023-02-05] MEDS ORDERED: PERCOCET 5MG/325MG TAB PO PRN (13:15)
[2023-02-05] MEDS ORDERED: HYDROMORPHONE HCL 0.5 MG/ 0.5 ML SYRINGE IV PRN (13:15)
[2023-02-05] MEDS ORDERED: METOCLOPRAMIDE INJ 10MG/2ML VIAL IV PRN (13:15)
[2023-02-05] MEDS ORDERED: ONDANSETRON 4MG 2ML VIAL IV PRN (13:15)
[2023-02-05] MEDS ORDERED: fentaNYL 100 MCG/2 ML INJECTION IV PRN (13:15)
[2023-02-05] MEDS ORDERED: ONDANSETRON 4MG 2ML VIAL IV ONE (16:00)
[2023-02-05 17:37] VITALS: BP 132/89
== END 2023-02-05 17:43 | disposition home or self-care (01) ==
LOC: M SDC 08:56
PROVIDERS: ATTEND Obstetrics & Gynecology
DX: N87.1 Moderate cervical dysplasia (principal); D25.9 Leiomyoma of uterus, unspecified; I10 Essential (primary) hypertension; E78.5 Hyperlipidemia, unspecified; E04.1 Nontoxic single thyroid nodule; K21.9 Gastro-esophageal reflux disease without esophagitis; Z92.21 Personal history of antineoplastic chemotherapy; Z88.2 Allergy status to sulfonamides; Z88.8 Allergy status to other drugs, medicaments and biological substances; F12.10 Cannabis abuse, uncomplicated; Z87.891 Personal history of nicotine dependence; Z79.899 Other long term (current) drug therapy
CPT/HCPCS: 36415; 58571; 85027; 86850; 86900; 86901; 88307; J0131; J0690; J1100; J1170; J2250; J2405; J2765; J3010; S2900

== ENCOUNTER → 2023-06-17 | Outpatient (CLI) | payer MEDICARE ==
[~2023-06-17] MED LIST changes: -ceFAZolin SOD 2 GM in IV 1 EA IV ONE
== END ==
LOC: M RAD 11:12
PROVIDERS: ATTEND Surgery Vascular Surgery
DX: I65.23 Occlusion and stenosis of bilateral carotid arteries (principal)

== ENCOUNTER → 2023-06-17 | Outpatient (CLI) | payer MEDICARE | LOC: M RAD 11:10 | PROVIDERS: ATTEND Internal Medicine | DX: E04.2 Nontoxic multinodular goiter (principal) ==

== ENCOUNTER → 2023-08-21 | Outpatient (REF) | payer MEDICARE | LOC: M LAB REF 16:12 | PROVIDERS: ATTEND Internal Medicine | DX: G89.4 Chronic pain syndrome (principal) ==

== ENCOUNTER → 2024-01-06 | Outpatient (CLI) | payer MEDICARE | LOC: M WHC 14:47 | PROVIDERS: ATTEND Internal Medicine | DX: Z13.820 Encounter for screening for osteoporosis (principal); Z12.31 Encounter for screening mammogram for malignant neoplasm of breast ==

== ENCOUNTER → 2024-04-13 | Outpatient (CLI) | payer MEDICARE ==
[2024-04-13 13:58] LABS: HEMATOCRIT 36.8 % (36.0-47.0); HEMOGLOBIN 12.4 g/dl (12.0-15.5); MEAN CORPUSCULAR HEMOGLOBIN 33.1 pg (27.0-33.0); MEAN CORPUSCULAR HGB CONC 33.7 g/dl (32.0-36.5); MEAN CORPUSCULAR VOLUME 98.1 fl (80.0-96.0); PLATELET COUNT, AUTOMATED 300 10^3/uL (150-450); RED BLOOD COUNT 3.75 10^6/uL (4.00-5.40); WHITE BLOOD COUNT 3.7 10^3/uL (4.0-10.0)
[2024-04-13 14:07] LABS: ERYTHROCYTE SEDIMENTATION RATE 26 mm/hr (0-30)
[2024-04-13 14:22] LABS: C REACTIVE PROTEIN QUANTITATIV < 0.40 MG/DL (<1.0)
[2024-04-13 14:23] LABS: ALBUMIN 3.6 G/DL (3.2-5.2); ALKALINE PHOSPHATASE 63 U/L (46-116); ALT/SGPT 20 U/L (7.0-40); AST/SGOT 14 U/L (<34); BILIRUBIN,TOTAL 0.3 MG/DL (0.3-1.2); BLOOD UREA NITROGEN 7 MG/DL (9-23); CARBON DIOXIDE LEVEL 32 MMOL/L (20-31); CHLORIDE LEVEL 102 MMOL/L (98-107); CREATININE FOR GFR 0.56 MG/DL (0.55-1.30); GLOMERULAR FILTRATION RATE > 60.0 (>45); GLUCOSE, FASTING 134 MG/DL (74-106); POTASSIUM SERUM 4.5 MMOL/L (3.5-5.1); SODIUM LEVEL 138 MMOL/L (136-145); TOTAL PROTEIN 6.8 G/DL (5.7-8.2)
[2024-04-15 15:47] LABS: QuantiFERON-TB Gold Plus NEGATIVE (NEGATIVE)
== END ==
LOC: M LAB 13:02
PROVIDERS: ATTEND Internal Medicine Gastroenterology
DX: K51.90 Ulcerative colitis, unspecified, without complications (principal); K62.5 Hemorrhage of anus and rectum; K44.9 Diaphragmatic hernia without obstruction or gangrene; D50.0 Iron deficiency anemia secondary to blood loss (chronic); K57.30 Diverticulosis of large intestine without perforation or abscess without bleeding; R12 Heartburn

== ENCOUNTER → 2024-05-07 | Outpatient (CLI) | payer MEDICARE | LOC: M RAD 13:51 | PROVIDERS: ATTEND Internal Medicine | DX: Z12.2 Encounter for screening for malignant neoplasm of respiratory organs (principal); F17.211 Nicotine dependence, cigarettes, in remission ==

== ENCOUNTER → 2025-01-10 | Outpatient (CLI) | payer MEDICARE | LOC: M WHC 10:42 | PROVIDERS: ATTEND Internal Medicine | DX: Z12.31 Encounter for screening mammogram for malignant neoplasm of breast (principal); R92.30 Dense breasts, unspecified ==

== ENCOUNTER → 2025-05-30 | Outpatient (REF) | payer MEDICARE | LOC: M LAB REF 11:42 | PROVIDERS: ATTEND Internal Medicine | DX: K51.90 Ulcerative colitis, unspecified, without complications (principal); D50.0 Iron deficiency anemia secondary to blood loss (chronic); K21.9 Gastro-esophageal reflux disease without esophagitis; R53.83 Other fatigue ==

== ENCOUNTER → 2025-06-30 | Outpatient (CLI) | payer MEDICARE | LOC: M RAD 10:45 | PROVIDERS: ATTEND Internal Medicine | DX: F17.211 Nicotine dependence, cigarettes, in remission (principal); R91.8 Other nonspecific abnormal finding of lung field; R93.1 Abnormal findings on diagnostic imaging of heart and coronary circulation; E04.2 Nontoxic multinodular goiter ==

== ENCOUNTER → 2025-06-30 | Outpatient (CLI) | payer MEDICARE | LOC: M WHC 13:21 | PROVIDERS: ATTEND Internal Medicine | DX: E04.2 Nontoxic multinodular goiter (principal) ==

== ENCOUNTER → 2025-08-15 | Outpatient (CLI) | payer MEDICARE | LOC: M WUC 11:40 | PROVIDERS: ATTEND Internal Medicine | DX: E04.2 Nontoxic multinodular goiter (principal) ==